=== PATIENT | female | born 1960 | race Caucasian/White ===

== ENCOUNTER → 2017-10-10 | Outpatient (CLI) | payer BC, OTHER ==
[~2017-10-10] MED LIST: DENOSUMAB 60 MG/1 ML SYR SUBQ ONE; GAB300 PO; TER20I SQ
== END ==
LOC: SPU 07:39
PROVIDERS: ATTEND Nurse Practitioner Family
DX: M81.8 Other osteoporosis without current pathological fracture (principal)
CPT/HCPCS: 96372; J0897

== ENCOUNTER → 2018-01-12 | Outpatient (CLI) | payer BC ==
[~2018-01-12] MED LIST changes: -DENOSUMAB 60 MG/1 ML SYR SUBQ ONE
--- NOTE | 2018-01-12 16:10 | RADIOLOGY IMAGING REPORT ---
FACILITY: [facility] [place] PATIENT NAME: Mandy Rodriguez : 1960 MR: [id number] V: [id number] EXAM DATE: ORDERING PHYSICIAN: [facility] TECHNOLOGIST: Location: [facility] [place] Patient: Mandy Rodriguez : 1960 Visit/Account:[id number] Date of Sevice: 01/12/2018 Technique: LUMBAR SPINE 2 OR 3 VIEW HISTORY: Fecal incontinence Comparison studies: Report scoliosis radiographs July 30, 2013 FINDINGS: Present is a rotatory levoscoliotic curvature of the lumbar spine. Extensive postoperative hardware is noted throughout the visualized thoracolumbar spine including fusion hardware through th e bilateral sacroiliac joints. Partial cortical fusion is noted throughout multiple levels of the th oracolumbar spine. There is posterior wedging of the L4 vertebral body which appears chronic. No ac breanne fracture is grossly identified. IMPRESSION: 1. Extensive postoperative changes as described above. Report Dictated By: Tima Hernandez DO at 01/12/2018 3:50 PM Report E-Signed By: Tima Hernandez DO at 01/12/2018 4:06 PM WSN:[id number]
== END ==
LOC: RAD 15:24
PROVIDERS: ATTEND Internal Medicine Gastroenterology
DX: M41.9 Scoliosis, unspecified (principal); Z98.890 Other specified postprocedural states
CPT/HCPCS: 72100

== ENCOUNTER 2018-03-19 14:30 | Outpatient (RCR) | payer BC ==
[~2018-03-19 14:30] MED LIST changes: +DENOSUMAB 60 MG/1 ML SYR SUBQ ONE
[2018-03-19 14:43] VITALS: BP 101/75
[2018-03-19] MEDS ORDERED: CALC1TAB32 PO (14:43)
== END 2018-04-03 09:03 | disposition home or self-care (01) ==
LOC: SPU 14:30
PROVIDERS: ATTEND Nurse Practitioner Family
DX: M81.8 Other osteoporosis without current pathological fracture (principal)
CPT/HCPCS: 96372; J0897

== ENCOUNTER 2018-08-24 14:26 | Outpatient (RCR) | payer BC ==
[~2018-08-24 14:26] MED LIST changes: +CALC1TAB32 PO; -DENOSUMAB 60 MG/1 ML SYR SUBQ ONE
== END 2018-09-09 11:06 | disposition home or self-care (01) ==
LOC: SPU 14:26
PROVIDERS: ATTEND Nurse Practitioner Family
DX: Z02.9 Encounter for administrative examinations, unspecified (principal)

== ENCOUNTER → 2018-08-25 | Outpatient (CLI) | payer BC ==
[~2018-08-25] MED LIST changes: +DENOSUMAB 60 MG/1 ML SYR SUBQ ONE
[2018-08-25 10:32] VITALS: BP 110/71
== END ==
LOC: SPU 05:51
PROVIDERS: ATTEND Nurse Practitioner Family
DX: M81.0 Age-related osteoporosis without current pathological fracture (principal)
CPT/HCPCS: 96372; J0897

== ENCOUNTER → 2019-02-26 | Outpatient (CLI) | payer BC ==
[2019-02-26 14:28] VITALS: BP 109/69
== END ==
LOC: SPU 08:28
PROVIDERS: ATTEND Nurse Practitioner Family
DX: M81.8 Other osteoporosis without current pathological fracture (principal)
CPT/HCPCS: 96372; J0897